=== PATIENT | female | born 1970 | race African-American/Black ===

== ENCOUNTER 2018-02-09 20:36 | Inpatient (IN) ==
[2018-02-09] MEDS ORDERED: SODIUM CHLORIDE 0.9% 500 ML IV STA (22:19)
[2018-02-09] MEDS ORDERED: ALUM/MAG/SIMETH/LIDO VISC 1:1 30 ML BOTTLE PO STA (22:19)
[2018-02-09] MEDS ORDERED: ONDANSETRON 4 MG/2 ML VIAL IV STA (22:19)
[2018-02-09] MEDS ORDERED: PANTOPRAZOLE 40 MG VIAL IV STA (22:19)
[2018-02-09] MEDS ORDERED: KETOROLAC 30 MG/1 ML VIAL IV STA (22:19)
[2018-02-09] MEDS ORDERED: PANTOPRAZOLE 40 MG VIAL IV ONE (22:36)
[2018-02-09] MEDS ORDERED: ALUM/MAG/SIMETH/LIDO VISC 1:1 30 ML BOTTLE PO ONE (22:36)
[2018-02-09] MEDS ORDERED: ONDANSETRON 4 MG/2 ML VIAL ONE (22:36)
[2018-02-09 22:39] LABS: Basophils # 0.1 10*3/uL (0.0-0.2); Basophils % 0.5 % (0.0-0.8); Eosinophils # 0.3 10*3/uL (0.0-0.87); Immature Granulocytes % 0.3 %; Immature Granulocytes Absolute 0.05 #; Lymphocytes # 4.9 10*3/uL (1.4-4.0); Lymphocytes % 33.8 % (21.3-54.2); Mean Corpuscular HGB Conc 29.2 GM/DL (32-36); Mean Corpuscular Hemoglobin 21 PG (27-34); Mean Corpuscular Volume 71.1 FL (87-102); Mean Platelet Volume 11.4 FL (9.6-12.0); Monocytes # 1.1 10*3/uL (0.11-0.8); Monocytes % 7.4 % (1.7-12.7); Neutrophils # 8.1 10*3/uL (1.4-7.4); Platelet Count 389 T/CUMM (130-400); Red Blood Count 5.05 MC/CUMM (3.8-5.5); Red Cell Distribution Width 17.5 % (9.3-17.3); White Blood Count 14.5 T/CUMM (4-12)
[2018-02-09 22:54] LABS: Hematocrit 35.8 VOL% (35.7-47.0); Hemoglobin 10.5 GM/DL (12.0-16.0)
[2018-02-09 22:57] LABS: Apearance,Urine CLOUDY (Clear); Bilirubin,Urine Negative (Negative); Blood, Urine Negative (Negative); Glucose,Urine (UA) Negative (Negative); Hyaline Casts,Urine 1 /LPF (0-3); Ketones,Urine Negative (Negative); Mucus,Urine Occasional /LPF (Occasional); Nitrite,Urine Negative (Negative); Protein,Urine Negative; RBC,Urine 1 /HPF (0-4); Squamous Epithelial Cell,Urine Moderate /HPF (0-10); Urine Color Yellow (Yellow); Urine Specific Gravity 1.014 (1.001-1.035); Urine Urobilinogen < 2.0 EU/DL (0.2-1.0); WBC,Urine 2 /HPF (0-6)
[2018-02-09 23:13] LABS: Alanine Aminotransferase 32 U/L (13-56); Albumin 3.6 G/DL (3.4-5.0); Alkaline Phosphatase 78 U/L (45-117); Amylase 46 U/L (25-115); Aspartate Amino Transferase 21 U/L (0-37); Blood Urea Nitrogen 14 MG/DL (7-18); Calcium 9.3 MG/DL (8.5-10.1); Glucose 142 MG/DL (74-106); Osmolality,Calculated 281.4 MOS/KG (273-304); Potassium 3.7 MMOL/L (3.5-5.1); Sodium 140 MMOL/L (136-145); Total Protein 7.8 G/DL (6.4-8.3); Troponin I Only < 0.015 NG/ML (0.00-0.045)
[2018-02-09 23:20] LABS: Lactic Acid 2.5 MMOL/L (0.4-2.0)
[2018-02-10 01:06] LABS: PT Patient Result 10.7 SECS; Partial Thromboplastin Time 26.1 SECS (0-40)
[2018-02-10] MEDS ORDERED: HYDROmorphone 2 MG/1 ML VIAL IV PRN (02:16)
[2018-02-10] MEDS ORDERED: GLUCAGON 1 MG VIAL IM PRN (02:16)
[2018-02-10] MEDS ORDERED: DEXTROSE 50% 25 GM/50 ML VIAL IV PRN (02:16)
[2018-02-10] MEDS ORDERED: ACETAMINOPHEN 325 MG TABLET PO PRN (02:16)
[2018-02-10] MEDS ORDERED: ONDANSETRON 4 MG/2 ML VIAL IV PRN (02:16)
[2018-02-10] MEDS: metroNIDAZOLE INJ 500 MG in PREMIX 1 EACH IV SCH ×3 (03:10→18:51)
[2018-02-10] MEDS: SODIUM CHLORIDE 0.9% 1,000 ML IV SCH (04:59)
[2018-02-10] MEDS: PIPERACILLIN/TAZOBACTAM 3,375 MG in SODIUM CHLORIDE 0.9% 100 ML IV SCH ×3 (05:17→20:35)
[2018-02-10] MEDS: INSULIN REGULAR 100 UNIT/ML SUBCUT SCH ×4 (06:01→20:11)
[2018-02-10 07:14] LABS: Albumin 3.1 G/DL (3.4-5.0); Bilirubin,Total 0.6 MG/DL (0.2-1.0); Calcium 8.8 MG/DL (8.5-10.1); Osmolality,Calculated 282.3 MOS/KG (273-304); Potassium 3.9 MMOL/L (3.5-5.1); Total Protein 6.6 G/DL (6.4-8.3)
[2018-02-10 07:18] LABS: Basophils # 0.1 10*3/uL (0.0-0.2); Basophils % 0.6 % (0.0-0.8); Eosinophils # 0.3 10*3/uL (0.0-0.87); Hematocrit 32.7 VOL% (35.7-47.0); Immature Granulocytes % 0.4 %; Immature Granulocytes Absolute 0.05 #; Lymphocytes # 4.5 10*3/uL (1.4-4.0); Lymphocytes % 36.1 % (21.3-54.2); Mean Corpuscular HGB Conc 29.1 GM/DL (32-36); Mean Corpuscular Hemoglobin 20 PG (27-34); Mean Corpuscular Volume 70.2 FL (87-102); Mean Platelet Volume 11.8 FL (9.6-12.0); Monocytes # 1.1 10*3/uL (0.11-0.8); Monocytes % 8.5 % (1.7-12.7); Neutrophils # 6.5 10*3/uL (1.4-7.4); Neutrophils % 52.4 % (38.7-73.9); Platelet Count 316 T/CUMM (130-400); Red Blood Count 4.66 MC/CUMM (3.8-5.5); Red Cell Distribution Width 17.5 % (9.3-17.3); White Blood Count 12.4 T/CUMM (4-12)
[2018-02-10 07:20] LABS: Hemoglobin 9.5 GM/DL (12.0-16.0)
[2018-02-10] MEDS ORDERED: PANTOPRAZOLE 40 MG VIAL IV SCH (09:00)
[2018-02-10] MEDS: metFORMIN 500 MG TABLET PO SCH ×2 (09:25→17:18)
[2018-02-10] MEDS: ASPIRIN EC 81 MG TABLET PO SCH (09:25)
[2018-02-10] MEDS: glipiZIDE 5 MG TABLET PO SCH (09:25)
[2018-02-10] MEDS: LISINOPRIL 2.5 MG TABLET PO SCH (09:25)
[2018-02-10] MEDS: ATORVASTATIN 40 MG TABLET PO SCH (09:25)
[2018-02-10] MEDS: hydroCHLOROthiazide 25 MG TABLET PO SCH (09:25)
[2018-02-10] MEDS: PANTOPRAZOLE 40 MG TABLET PO SCH (09:26)
[2018-02-11] MEDS: metroNIDAZOLE INJ 500 MG in PREMIX 1 EACH IV SCH ×3 (02:21→17:42)
[2018-02-11] MEDS: PIPERACILLIN/TAZOBACTAM 3,375 MG in SODIUM CHLORIDE 0.9% 100 ML IV SCH ×3 (04:21→21:51)
[2018-02-11] MEDS: SODIUM CHLORIDE 0.9% 1,000 ML IV SCH ×4 (04:21→17:42)
[2018-02-11 07:59] LABS: Basophils # 0.1 10*3/uL (0.0-0.2); Basophils % 0.5 % (0.0-0.8); Eosinophils # 0.2 10*3/uL (0.0-0.87); Eosinophils % 2.5 % (0.00-10.9); Hematocrit 33.6 VOL% (35.7-47.0); Hemoglobin 10.1 GM/DL (12.0-16.0); Immature Granulocytes % 0.4 %; Immature Granulocytes Absolute 0.04 #; Lymphocytes % 32.3 % (21.3-54.2); Mean Corpuscular HGB Conc 30.1 GM/DL (32-36); Mean Corpuscular Hemoglobin 21 PG (27-34); Mean Corpuscular Volume 69.7 FL (87-102); Mean Platelet Volume 11.1 FL (9.6-12.0); Monocytes # 0.8 10*3/uL (0.11-0.8); Monocytes % 8.6 % (1.7-12.7); Neutrophils # 5.2 10*3/uL (1.4-7.4); Neutrophils % 55.7 % (38.7-73.9); Platelet Count 362 T/CUMM (130-400); Red Blood Count 4.82 MC/CUMM (3.8-5.5); Red Cell Distribution Width 17.5 % (9.3-17.3); White Blood Count 9.3 T/CUMM (4-12)
[2018-02-11 08:11] LABS: Giant Platelets Few; Hypochromasia 1+; Ovalocytes Slight; Platelet Estimate Adequate
[2018-02-11 08:18] LABS: Calcium 8.9 MG/DL (8.5-10.1); Osmolality,Calculated 280.4 MOS/KG (273-304); Potassium 3.9 MMOL/L (3.5-5.1)
[2018-02-11] MEDS: glipiZIDE 5 MG TABLET PO SCH (09:18)
[2018-02-11] MEDS: ATORVASTATIN 40 MG TABLET PO SCH (09:18)
[2018-02-11] MEDS: metFORMIN 500 MG TABLET PO SCH ×2 (09:18→16:34)
[2018-02-11] MEDS: hydroCHLOROthiazide 25 MG TABLET PO SCH (09:18)
[2018-02-11] MEDS: LISINOPRIL 2.5 MG TABLET PO SCH (09:18)
[2018-02-11] MEDS: ASPIRIN EC 81 MG TABLET PO SCH (09:18)
[2018-02-11] MEDS: PANTOPRAZOLE 40 MG TABLET PO SCH (09:19)
[2018-02-11] MEDS: INSULIN REGULAR 100 UNIT/ML SUBCUT SCH ×4 (09:19→22:15)
[2018-02-12] MEDS: SODIUM CHLORIDE 0.9% 1,000 ML IV SCH (02:15)
[2018-02-12] MEDS: metroNIDAZOLE INJ 500 MG in PREMIX 1 EACH IV SCH (02:15)
[2018-02-12] MEDS: PIPERACILLIN/TAZOBACTAM 3,375 MG in SODIUM CHLORIDE 0.9% 100 ML IV SCH (04:13)
[2018-02-12 06:40] VITALS: BP 125/67
[2018-02-12] MEDS: metFORMIN 500 MG TABLET PO SCH (08:32)
[2018-02-12] MEDS: ASPIRIN EC 81 MG TABLET PO SCH (08:32)
[2018-02-12] MEDS: PANTOPRAZOLE 40 MG TABLET PO SCH (08:32)
[2018-02-12] MEDS: glipiZIDE 5 MG TABLET PO SCH (08:32)
[2018-02-12] MEDS: ATORVASTATIN 40 MG TABLET PO SCH (08:32)
[2018-02-12] MEDS: LISINOPRIL 2.5 MG TABLET PO SCH (08:32)
[2018-02-12] MEDS: INSULIN REGULAR 100 UNIT/ML SUBCUT SCH (08:32)
[2018-02-12] MEDS: hydroCHLOROthiazide 25 MG TABLET PO SCH (08:32)
== END 2018-02-12 09:40 | disposition home or self-care (01) | DRG 392 ==
LOC: N.ED 20:36 → N.EDINP 02-10 00:54 → N.3E 02-10 01:31
PROVIDERS: ADMIT Surgery; ATTEND Surgery